=== PATIENT | female | born 2000 | race Two or more races ===

== ENCOUNTER → 2021-12-12 11:33 | Outpatient (BNVA) | payer BC, SELFPAY | PROVIDERS: PCP Internal Medicine; Visit Provider Advanced Practice Midwife ==

== ENCOUNTER 2022-01-17 10:49 | Outpatient (REF) | payer BC, SELFPAY ==
[2022-01-17 14:06] LABS: MANUAL DIFF FLAG NO
[2022-01-17 14:10] LABS: Basophils Absolute Auto 0.1 X10*3/uL (0.0-0.2); Basophils Percent Auto 0.9 % (0-2); Eosinophils Absolute Auto 0.2 X10*3/uL (0.0-0.4); Eosinophils Percent Auto 4.3 % (0-4); Hematocrit 38.3 % (37.0-47.0); Hemoglobin 12.9 g/dl (12.0-16.0); Imm Gran Abs Auto 0.01 X10*3/uL (0.00-0.03); Imm Gran Pct Auto 0.2 % (0.0-0.4); Lymphocytes Absolute Auto 2.4 X10*3/uL (1.2-4.9); Lymphocytes Percent Auto 45.2 % (20-40); Mean Corpuscular HGB Conc 33.7 g/dl (31.0-35.0); Mean Corpuscular Hemoglobin 30.8 pg (27.0-33.0); Mean Corpuscular Volume 91.4 fL (80.0-98.0); Mean Platelet Volume 11.4 fL (9.4-12.3); Monocytes Absolute Auto 0.4 X10*3/uL (0.1-1.2); Monocytes Percent Auto 6.9 % (2-11); Neutrophils Absolute Auto 2.3 x10*3/uL (2.0-8.3); Neutrophils Percent Auto 42.5 % (45-73); Platelet Count 288 X10*3/uL (160-400); Red Blood Count 4.19 X10*6/uL (4.20-5.50); Red Cell Distribution Width 12.6 % (11.0-16.0); White Blood Count 5.4 X10*3/uL (4.8-10.8)
[2022-01-17 14:24] LABS: Alanine Aminotransferase 16 U/L (0-31); Albumin Level 4.2 g/dL (3.5-5.0); Alkaline Phosphatase 52 U/L (39-117); Anion Gap 11 (12-20); Aspartate Amino Transferase 19 U/L (5-31); Bilirubin Total 0.6 mg/dL (0.0-1.0); Blood Urea Nitrogen 12 mg/dL (9-16); Calcium 9.3 mg/dL (8.4-10.2); Carbon Dioxide 23 mmol/L (22-29); Chloride 106 mmol/L (96-108); Cholesterol 162 mg/dL; Estimated Glomerular Filt Rate > 60; Glucose Fasting 85 mg/dL (60-99); HDL Cholesterol 37 mg/dL; LDL Cholesterol Calculated 108 mg/dl; Potassium 4.1 mmol/L (3.3-5.1); Sodium 136 mmol/L (135-145); Triglycerides 89 mg/dL
[2022-01-17 14:51] LABS: TSH reflex Free T4 3.52 uIU/mL (0.32-4.0)
== END 2022-01-17 10:50 | disposition home or self-care (01) ==
LOC: HO.HMGCLDS 10:49
PROVIDERS: Visit Provider Internal Medicine
DX: Z00.01 Encounter for general adult medical examination with abnormal findings (principal); F32.2 Major depressive disorder, single episode, severe without psychotic features; F43.10 Post-traumatic stress disorder, unspecified
CPT/HCPCS: 36415; 80053; 80061; 84443; 85025

== ENCOUNTER → 2022-04-06 13:05 | Outpatient (BNVA) | payer BC, SELFPAY | PROVIDERS: PCP Internal Medicine; Visit Provider Advanced Practice Midwife | DX: Z32.02 Encounter for pregnancy test, result negative (principal); Z30.41 Encounter for surveillance of contraceptive pills | CPT/HCPCS: 81025 ==

== ENCOUNTER 2023-08-01 13:56 | Outpatient (AMB) | payer BC, SELFPAY ==
[2023-08-01 14:04] VITALS: BP 118/70; PULSE 98; O2SAT 99; BMI 25.2
--- NOTE | 2023-08-01 14:04 | A.OFFPC_ITS ---
Vital Signs 3 08/01/23 14:04 Height 5 ft 6 in Weight 156 lb 4 oz BMI 25.2 BP 118/70 Blood Pressure Location Rt brachial Position Sitting Pulse 98 Pulse Source Pulse Oximeter Pulse Oximetry (%) 99 Oxygen Delivery Method Room Air Intake Visit Reasons: Discuss personal issues Allergies No Known Allergies Allergy (Verified 08/01/23 14:06) Medication List - Last Reconciled 08/01/23 by Fabiano Bustamante MD No Known Home Meds Tobacco use date assessed: 08/01/23 Dental Screening Dental Screen Date: 08/01/23 Did you have a dental visit in the last 12 months?: No Did you have a dental problem in the last 6 months where you did not have access to dental care?: No Was dental information given to patient?: Patient has dentist HPI Discuss personal issues 2 HPI0 Details Patient says that she felt of painful lump right groin area close to labia that she would like to be evaluated She also is complaining of feeling 2 in of pain off and on left breast Patient is not sure if it is more so close to her menstrual cycle or not. On examination patient has very fibronodular breast but symmetrical. No lumps were felt no nipple discharge noticed Patient was reassured The painful lump she is concerned about is small boil I have sent doxycycline she may take that. [facility] Medical History Migraine with aura Family History Maternal Grandfather Diabetes Social History Housing: House Alcohol intake: current Alcohol intake frequency: holidays/special occasions only Patient Tobacco Use Status: Never used Tobacco e-Cigarette/Vaping Use: Currently Using service: No Current occupational status: employed Sexual orientation: Straight/Heterosexual Gender identity: Female Cognitive needs: No Hearing needs: No Vision needs: Yes Female Reproductive History Menstrual Age of Menarche: 11 Questionnaire PHQ-9 Over the last 2 weeks, how often have you been bothered by any of the following problems? 1. Little interest or pleasure in doing things: more than half the days 2. Feeling down, depressed, or hopeless: more than half the days 3. Trouble falling or staying asleep, or sleeping too much: nearly every day 4. Feeling tired or having little energy: several days 5. Poor appetite or overeating: more than half the days 6. Feeling bad about yourself - or that you are a failure or have let yourself or your family down: more than half the days 7. Trouble concentrating on things, such as reading the newspaper or watching television: several days 8. Moving or speaking so slowly that other people could have noticed. Or the opposite - being so fidgety or restless that you have been moving around a lot more than usual: several days 9. Thoughts that you would be better off or of hurting yourself in some way: several days Total score: 15 Depression Screening Interpretation: Positive Depression Screening Follow-up: Community Mental Health Worker F/U and Follow-up Visit Requested Depression Screening Done: Yes 77779 - PHQ-9 Billing: Yes Source: Developed by Drs. Donald De Leon, Elena Longoria, Rod Lamar and colleagues, with an educational danny from [employer]. Thrive Questionnaire Date Thrive assessed: 11/22/21 I am a: Patient What is your living situation today?: I have a steady place to live Within the past 12 months, did the food you bought not last and you didn't have the money to get more?: Sometimes True Within the past 12 months, did you worry whether your food would run out before you got money to buy more?: Sometimes True Do you have trouble paying for medicines?: No Do you have trouble getting transportation to medical appointments?: No Do you have trouble paying your heating and electricity bill?: No Do you have trouble taking care of your child, family member or friend?: No Do you have trouble with day-to-day activities such as bathing, preparing meals, shopping, managing finances, etc.?: No Are you currently unemployed and looking for a job?: No Are you interested in more education?: Yes AUDIT C Alcohol Use Questionnaire (AUDIT-C) 1. How often do you have a drink containing alcohol?: Never 3. How often do you have six or more drinks on one occasion?: Never Total Score: 0 Score Reviewed/Action Taken: Yes RAMESH-7 AMB Questionnaire RAMESH-7 Date RAMESH - 7 assessed: 08/01/23 Feeling nervous, anxious, or on edge: 2 = More than half the days Not being able to stop or control worryin = Nearly every day Worrying too much about different things: 3 = Nearly every day Trouble relaxin = More than half the days Being so restless that it is hard to sit still: 1 = Several days Becoming easily annoyed or irritable: 2 = More than half the days Feeling afraid as if something awful might happen: 3 = Nearly every day Total RAMESH-7 score (0-4 normal; 5-9 mild; 10-14 moderate; 15-21 severe): 16 Source: Developed by Drs. Donald De Leon, Elena Longoria, Rod Lamar and colleagues, with an educational danny from [employer]. RAMESH-7 Assessment Billing RAMESH-7 Assessment Tool: RAMESH-7 Assessment 99663 Review of Systems Const Denies chills and Denies fever(s) ENT Denies epistaxis and Denies nasal discharge Card Denies chest pain Resp Denies chest congestion, Denies cough and Denies hemoptysis GI Denies diarrhea and Denies nausea Skin/Breast Denies rash Neuro Reports no additional complaints Psych Reports no additional complaints Endo Reports no additional complaints Physical exam (Primary Care) Vital Signs: Last Vital Signs Pulse 98 08/01/23 14:04 BP 118/70 08/01/23 14:04 Pulse Ox 99 08/01/23 14:04 Oxygen Delivery Method Room Air 08/01/23 14:04 BMI result Body Mass Index 25.2 Tobacco/Smoking Status: Tobacco use Status Tobacco use date assessed 08/01/23 08/01/23 14:06 Patient Tobacco Use Status Never used Tobacco 08/01/23 14:06 e-Cigarette/Vaping Use Currently Using 08/01/23 14:06 PHQ-9: PHQ-9 Score PHQ-9: Total score 15 08/01/23 14:21 Depression Screening Interpretation: Positive Depression Screening Follow-up: Community Mental Health Worker F/U and Follow-up Visit Requested Thrive Assessment: Date of Thrive Assessment Date Thrive assessed 11/22/21 08/01/23 14:06 Const General: cooperative, comfortable and no acute distress Orientation/consciousness: patient oriented x3 HENMT Head: Yes normocephalic Eyes General: appearance normal, both eyes and all related structures Neck Neck: Yes supple Chest Other: Both breasts are very fibronodular but symmetrical Resp Effort & Inspection: normal respiratory effort, no cough and no stridor Female genitals images: 2 1. Small inflamed boil without fluctuation or pus Skin General skin exam: turgor normal Neuro General: patient oriented x3, tone normal and moves all extremities Extrem Right lower extremity: no edema Left lower extremity: no edema Assessment and Plan Assessment & Plan (1) Boil, groin: Code(s): L02.224 - Furuncle of groin (2) Soreness breast: Code(s): N64.4 - Mastodynia (3) Major depressive disorder, severe: Comment: We will book a follow-up appointment after community health worker reach out to patient Code(s): F32.2 - Major depressive disorder, single episode, severe without psychotic features Plan Patient says that she felt of painful lump right groin area close to labia that she would like to be evaluated She also is complaining of feeling 2 in of pain off and on left breast Patient is not sure if it is more so close to her menstrual cycle or not. On examination patient has very fibronodular breast but symmetrical. No lumps were felt no nipple discharge noticed Patient was reassured The painful lump she is concerned about is small boil I have sent doxycycline she may take that. Medications: New 2 doxycycline hyclate 100 mg PO BID 10 caps 0RF Boil 5 days Coding Level of Care Code Est Pt Level 4 (26538) Diagnoses Boil, groin L02.224 Soreness breast N64.4 Major depressive disorder, severe F32.2 Additional Codes RAMESH-7 Assessment Billing - RAMESH-7 Assessment Tool: RAMESH-7 Assessment [id number] ([id number])
== END 2023-08-01 15:40 | disposition home or self-care (01) ==
PROVIDERS: PCP Internal Medicine; Visit Provider Internal Medicine
DX: L02.224 Furuncle of groin (principal); N64.4 Mastodynia; F32.2 Major depressive disorder, single episode, severe without psychotic features
CPT/HCPCS: 96127; 99214

== ENCOUNTER 2023-10-30 09:06 | Outpatient (AMB) | payer BC, SELFPAY ==
[2023-10-30 09:11] VITALS: BP 118/70; PULSE 108; O2SAT 98; BMI 26.1
--- NOTE | 2023-10-30 09:11 | MHC.PC.OV ---
Vital Signs 10/30/23 09:11 Height 5 ft 6 in Weight 162 lb BMI 26.1 BP 118/70 Blood Pressure Location Lt brachial Position Sitting Pulse 108 H Pulse Source Pulse Oximeter Pulse Oximetry (%) 98 Oxygen Delivery Method Room Air Intake Visit Reasons: Physical exam Is last menstrual period known: Yes Last menstrual period: 10/08/23 Allergies No Known Allergies Allergy (Verified 10/30/23 09:13) Medication List - Last Reconciled 10/30/23 by Fabiano Bustamante MD No Known Home Meds Tobacco use date assessed: 10/30/23 Dental Screening Dental Screen Date: 10/30/23 Did you have a dental visit in the last 12 months?: Yes Did you have a dental problem in the last 6 months where you did not have access to dental care?: No Was dental information given to patient?: Patient has dentist HPI Physical exam HPI Details Patient is 22-year-old female came in today for physical examination Patient continued to suffer from depression and anxiety She will be meeting with our behavior health coordinator She is willing to try medication this visit, I have sent Lexapro 10 mg tablet Patient was notified to take half a tablet for a week and then full tablet Lab order placed to be done fasting Patient is still waiting to see OBGYN We will book a telemedicine visit in 3 weeks to see how she is doing with the new medication Physical exam 1 year [facility] Medical History Migraine with aura Family History Maternal Grandfather Diabetes Social History Housing: House Alcohol intake: current Alcohol intake frequency: holidays/special occasions only Patient Tobacco Use Status: Never used Tobacco e-Cigarette/Vaping Use: Currently Using service: No Current occupational status: employed Sexual orientation: Straight/Heterosexual Gender identity: Female Cognitive needs: No Hearing needs: No Vision needs: Yes Female Reproductive History Menstrual Age of Menarche: 11 Date of last menstrual period: 10/08/23 Questionnaire PHQ-9 Over the last 2 weeks, how often have you been bothered by any of the following problems? 1. Little interest or pleasure in doing things: more than half the days 2. Feeling down, depressed, or hopeless: more than half the days 3. Trouble falling or staying asleep, or sleeping too much: nearly every day 4. Feeling tired or having little energy: several days 5. Poor appetite or overeating: more than half the days 6. Feeling bad about yourself - or that you are a failure or have let yourself or your family down: more than half the days 7. Trouble concentrating on things, such as reading the newspaper or watching television: several days 8. Moving or speaking so slowly that other people could have noticed. Or the opposite - being so fidgety or restless that you have been moving around a lot more than usual: several days 9. Thoughts that you would be better off or of hurting yourself in some way: several days Total score: 15 Depression Screening Interpretation: Positive Depression Screening Follow-up: Community Mental Health Worker F/U and Follow-up Visit Requested Depression Screening Done: Yes 74875 - PHQ-9 Billing: Yes Source: Developed by Drs. Donald De Leon, Rod Hyde and colleagues, with an educational danny from [employer]. Thrive Questionnaire Date Thrive assessed: 11/22/21 AUDIT C Alcohol Use Questionnaire (AUDIT-C) 1. How often do you have a drink containing alcohol?: Never 3. How often do you have six or more drinks on one occasion?: Never Total Score: 0 Score Reviewed/Action Taken: Yes RAMESH-7 AMB Questionnaire RAMESH-7 Date RAMESH - 7 assessed: 08/01/23 Source: Developed by Drs. Donald De Leon, Rod Hyde and colleagues, with an educational danny from [employer]. Review of Systems Const Denies chills, Denies fever(s) and Denies headache(s) Eyes Denies blurry vision ENT Denies headache(s), Denies nasal discharge, Denies nasal obstruction, Denies odynophagia and Denies sinus pain Card Denies chest pain at rest and Denies chest pain with activity Resp Denies cough and Denies hemoptysis GI Denies diarrhea, Denies odynophagia, Denies vomiting and Denies hematemesis Reports as per HPI Musc Denies abnormal gait Skin/Breast Reports as per HPI Neuro Denies Neuro-related abnormal movements, Denies Abnormal speech present, Denies abnormal gait, Denies headache(s) and Denies Sensory deficit (Neuro) Psych Denies paranoia Endo Reports as per HPI Matthew/Lymph Reports as per HPI Aller/Immun Reports as per HPI Physical exam (Primary Care) Vital Signs: Last Vital Signs Pulse 108 H 10/30/23 09:11 BP 118/70 10/30/23 09:11 Pulse Ox 98 10/30/23 09:11 Oxygen Delivery Method Room Air 10/30/23 09:11 BMI result Body Mass Index 26.1 Tobacco/Smoking Status: Tobacco use Status Tobacco use date assessed 10/30/23 10/30/23 09:14 Patient Tobacco Use Status Never used Tobacco 10/30/23 09:14 e-Cigarette/Vaping Use Currently Using 10/30/23 09:14 Depression Screening Interpretation: Positive Depression Screening Follow-up: Community Mental Health Worker F/U and Follow-up Visit Requested Thrive Assessment: Date of Thrive Assessment Date Thrive assessed 11/22/21 10/30/23 09:14 Const General: cooperative, comfortable and no acute distress Orientation/consciousness: patient oriented x3 HENMT Head: Yes normocephalic and Yes atraumatic Eyes General: appearance normal, both eyes and all related structures Pupils: Equal, round and reactive pupils present EOM: EOMs intact bilaterally Neck Neck: Yes supple and No lymphadenopathy Thyroid: Thyroid normal Lymphatic: no lymphadenopathy noted Resp Effort & Inspection: normal respiratory effort and able to speak in complete sentences Auscultation: clear to auscultation bilaterally Cardio Heart sounds: S1 normal heart sound present and S2 normal heart sound present GI Palpation (GI): Soft to palpation and nontender Auscultation: normal bowel sounds General: Yes no CVA tenderness Back/Spine/Pelvis Back: no CVA tenderness Skin General skin exam: elasticity normal and turgor normal Neuro General: patient oriented x3 and gait normal Cranial nerves: Yes Equal, round and reactive pupils present Speech: No Abnormal speech present Sensory Exam: No Sensory deficit (Neuro) Coordination: tandem gait normal and Romberg test negative Extrem General: Yes normal exam except as noted and No edema Assessment and Plan Assessment & Plan (1) Encounter for general adult medical examination with abnormal findings: Code(s): Z00.01 - Encounter for general adult medical examination with abnormal findings (2) PTSD (post-traumatic stress disorder): Code(s): F43.10 - Post-traumatic stress disorder, unspecified (3) Major depression, recurrent: Code(s): F33.9 - Major depressive disorder, recurrent, unspecified Qualifiers: Active/Remission status: in partial remission Qualified Code(s): F33.41 - Major depressive disorder, recurrent, in partial remission Plan Patient is 22-year-old female came in today for physical examination Patient continued to suffer from depression and anxiety She will be meeting with our behavior health coordinator She is willing to try medication this visit, I have sent Lexapro 10 mg tablet Patient was notified to take half a tablet for a week and then full tablet Lab order placed to be done fasting Patient is still waiting to see OBGYN We will book a telemedicine visit in 3 weeks to see how she is doing with the new medication Physical exam 1 year Orders: Orders Complete Blood Count Auto Diff Today F33.9 - Major depressive disorder, recurrent, unspecified, F43.10 - Post-traumatic stress disorder, unspecified, Z00.01 - Encounter for general adult medical examination with abnormal findings Comprehensive [place]. Panel Fast Today F33.9 - Major depressive disorder, recurrent, unspecified, F43.10 - Post-traumatic stress disorder, unspecified, Z00.01 - Encounter for general adult medical examination with abnormal findings Lipid Panel Today F33.9 - Major depressive disorder, recurrent, unspecified, F43.10 - Post-traumatic stress disorder, unspecified, Z00.01 - Encounter for general adult medical examination with abnormal findings TSH reflex Free T4 Today F33.9 - Major depressive disorder, recurrent, unspecified, F43.10 - Post-traumatic stress disorder, unspecified, Z00.01 - Encounter for general adult medical examination with abnormal findings Medications: New escitalopram oxalate (Lexapro) 10 mg PO DAILY 30 tabs 0RF Coding Level of Care Code Est Pt Prev Care 18-39y(00197) Diagnoses Encounter for general adult medical examination with abnormal findings Z00.01 PTSD (post-traumatic stress disorder) F43.10 Recurrent major depressive disorder, in partial remission F33.41 Active/Remission status: in partial remission
== END 2023-10-30 10:01 | disposition home or self-care (01) ==
PROVIDERS: PCP Internal Medicine; Visit Provider Internal Medicine
DX: Z00.00 Encounter for general adult medical examination without abnormal findings (principal); F43.10 Post-traumatic stress disorder, unspecified; F33.41 Major depressive disorder, recurrent, in partial remission
CPT/HCPCS: 99395

== ENCOUNTER → 2023-11-01 13:54 | Outpatient (BNVA) | payer BC, SELFPAY | PROVIDERS: PCP Internal Medicine; Visit Provider Advanced Practice Midwife ==

== ENCOUNTER 2024-01-23 07:58 | Outpatient (REF) | payer BC, SELFPAY ==
[2024-01-23 18:03] LABS: CT PCR NOT DETECTED (Not Detect.); NG PCR NOT DETECTED (Not Detect.)
== END 2024-01-23 07:59 | disposition home or self-care (01) ==
LOC: HO.LNP 07:58
PROVIDERS: PCP Internal Medicine; Visit Provider Advanced Practice Midwife
DX: Z01.419 Encounter for gynecological examination (general) (routine) without abnormal findings (principal); Z20.2 Contact with and (suspected) exposure to infections with a predominantly sexual mode of transmission
CPT/HCPCS: 0353U; 88142

== ENCOUNTER 2024-01-23 07:58 | Outpatient (AMB) | payer BC, SELFPAY ==
[2024-01-23 08:03] VITALS: BP 100/60; BMI 24.5
--- NOTE | 2024-01-23 08:03 | MHC.OFFVIS ---
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 Doing well with no concerns. First pelvic exam. Would like to restart her [place]. She tries to eat healthy and stays active with exercise. Regular monthly menses. Uses condoms for contraception.Currently is sexually active. She denies vaginal itching and irritation. STI screening offered; she accepts, declines blood work. Denies family history of breast, ovarian or colon cancer. She denies any contraindications to control such as: history of DVT or pulmonary emboli, high blood pressure, liver disease, thrombolic disorders, Lupus, +JOESPH, breast cancer, or smoking. [facility] Medical History Migraine with aura Family History Maternal Grandfather Diabetes Social History (Updated 01/23/24 @ 08:06 by NGUYEN Fortune) Housing: House Alcohol intake: current Alcohol intake frequency: holidays/special occasions only Patient Tobacco Use Status: Never used Tobacco e-Cigarette/Vaping Use: Currently Using service: No Current occupational status: employed Sexual orientation: Straight/Heterosexual Gender identity: Female Cognitive needs: No Hearing needs: No Vision needs: Yes Female Reproductive History Menstrual Age of Menarche: 11 Duration of menses: 3-5 days Date of last menstrual period: 01/13/24 control method: condoms Total pregnancies: 0 Review of Systems Const All systems reviewed & are unremarkable except as noted in HPI and below Reports as per HPI Eyes Reports no additional complaints ENT Reports no additional complaints Card Reports no additional complaints Resp Reports no additional complaints GI Reports as per HPI and Reports no additional complaints Reports as per HPI Musc Reports no additional complaints Skin/Breast Reports as per HPI Neuro Reports no additional complaints Psych Reports no additional complaints Endo Reports no additional complaints Matthew/Lymph Reports no additional complaints Aller/Immun Reports no additional complaints Physical Exam Vital Signs: Last Vital Signs BP 100/60 01/23/24 08:03 BMI result Body Mass Index 24.5 Const General: cooperative, healthy appearing, no acute distress, well developed and alert Orientation/consciousness: patient oriented x3 HEENT Head: Yes normal to inspection Eyes General: appearance normal, both eyes and all related structures Neck Neck: Yes normal visual inspection Thyroid: Thyroid normal Chest Chest palpation & inspection: normal inspection of the chest and other (no puckering, dimpling, peau de orange, retraction, discharge, masses) Breast/axilla inspection: normal inspection of the breasts Breast/axilla palpation: normal palpation of the breasts Resp Effort & Inspection: normal respiratory effort GI Inspection: Yes normal to inspection Palpation (GI): Soft to palpation Rectal Exam - Female: deferred General: Yes bladder normal to palpation External Female Exam: normal external appearance and normal appearance of the urethra Speculum Exam - Vagina: normal appearance of the vagina, normal palpation and normal vaginal discharge Speculum Exam - Cervix: normal appearance of the cervix and normal palpation Bimanual exam- vagina & uterus: normal bimanual exam, normal palpation, uterine size normal, bladder normal to palpation, normal palpation and non-tender Bimanual Exam- Adnexa, other: no masses Skin General skin exam: no rashes or lesions noted Rashes: no rashes Neuro General: patient oriented x3 Cognition (Neuro): normal cognition Extrem General: Yes normal to inspection Psych Attitude: cooperative Thought process: Normal thought process present Assessment & Plan Assessment & Plan (1) Encounter for well woman exam with routine gynecological exam: Code(s): Z01.419 - Encounter for gynecological examination (general) (routine) without abnormal findings Plan Discussed: Current recommendations for pap smears per ASCCP guidelines. Breast awareness and periodic breast exams. Maintain a healthy lifestyle including a well balanced diet and routine exercise. Use condoms for STI and prevention. control hormone use warnings: go to ER if and loss of vision, blindness, severe headache, chest pain or difficulty breathing, severe abdominal pain, or any pain or swelling in an extremity. Patient verbalizes understanding and agrees to the plan of care. She was given opportunity to ask questions and all questions were answered to the best of my ability. RTO in one year for annual vet tech examination. This note is constructed using voice recognition software. While every effort has been made to ensure accuracy, licensed real estate broker errors may have been included. Orders: Orders Pap Smear Today Z01.419 - Encounter for gynecological examination (general) (routine) without abnormal findings CT NG by PCR Today Z20.2 - Contact with and (suspected) exposure to infections with a predominantly sexual mode of transmission Medications: New norethindrone (contraceptive) (Eliane) 0.35 mg PO DAILY 90 tabs 4RF 90 days Coding Level of Care Code Est Pt Prev Care 18-39y(73633) Diagnoses Encounter for well woman exam with routine gynecological exam Z01.419
== END 2024-01-23 08:29 | disposition home or self-care (01) ==
PROVIDERS: PCP Internal Medicine; Visit Provider Advanced Practice Midwife
DX: Z01.419 Encounter for gynecological examination (general) (routine) without abnormal findings (principal)
CPT/HCPCS: 99395

== ENCOUNTER 2024-11-07 10:54 | Outpatient (AMB) | payer BC, SELFPAY ==
[2024-11-07 10:59] VITALS: BP 112/62; PULSE 81; O2SAT 94; BMI 24.6
--- NOTE | 2024-11-07 10:59 | MHC.PC.OV ---
Vital Signs 11/07/24 10:59 Height 5 ft 6 in Weight 152 lb 4 oz BMI 24.6 BP 112/62 Blood Pressure Location Lt brachial Position Sitting Pulse 81 Pulse Source Pulse Oximeter Pulse Oximetry (%) 94 Oxygen Delivery Method Room Air Intake Visit Reasons: Annual PE Allergies No Known Allergies Allergy (Verified 11/07/24 11:01) Medication List - Last Reconciled 11/07/24 by Fabiano Bustamante MD norethindrone (contraceptive) (Eliane) 0.35 mg PO DAILY 90 days Tobacco use date assessed: 11/07/24 Dental Screening Dental Screen Date: 11/07/24 Did you have a dental visit in the last 12 months?: Yes Did you have a dental problem in the last 6 months where you did not have access to dental care?: No Was dental information given to patient?: Patient has dentist HPI Annual PE HPI Details - The patient is a 23-year-old female presenting with a wellness visit. - Symptoms of allergic rhinitis include sneezing and a stuffy nose, occurring intermittently, primarily in the morning. - Current management includes sporadic use of [id number]-fhpdrkv medication Zyzol; advised for daily usage. Health Maintenance - Discussion on the importance of daily use of allergy medication for prevention. - Confirmation of being up-to-date on immunizations, essential for upcoming phlebotomy education. - Discussion about the need to check vaccination titers if there's any uncertainty about immunization status. - patient is established with OBGYN Pap smear and breast exam through them - patient does not want updated labs at this time Medications - Zyzol (Levocetirizine) on an as-needed basis for allergic rhinitis. 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 - No current job-related stress or issues were discussed. Diagnostic results - Prior labs were indicated as satisfactory. Patient Instructions - Begin taking Zyzol (Levocetirizine) daily as a preventative measure for allergy symptoms. - Continue avoidance of smoking and substance use. - Remain informed about immunization needs for phlebotomy education, checking titers if necessary. Review of Systems - Respiratory: Reports intermittent stuffy nose and sneezing. Denies any new respiratory concerns. - Dermatological: Denies any new moles, rash, or other skin issues. - Smoking: Recently quit smoking, specifically minimal use of marijuana. - General: No fever no chills - Neurological: No headaches no dizziness - Ear nose throat: No sore throat no hearing difficulty no ear pain - Cardiovascular: No syncope, no chest pain, no palpitations - Gastrointestinal: No nausea vomiting or diarrhea - Endocrine: No polyuria polydipsia no heat intolerance - Genitourinary: No dysuria Physical Exam General: Cooperative, healthy appearing, comfortable, no acute distress Orientation: Patient oriented x3 Limitations: None Head: Normal to inspection Ears: Within normal limit visually Nose: Normal external nose present Face and sinus: Normal facial exam Eyes: Appearance normal, extraocular movement intact pupils reactive Neck: Normal visual inspection and supple, no glands Respiratory: Normal respiratory effort and able to speak in complete sentences. Clear to auscultation, no stridor Cardiovascular: S1 and S2 GI: Normal to inspection. Soft to palpation and nontender, no problem in the belly Skin: Turgor normal, no acute findings, no moles, rash, or skin problems Neuro: Patient oriented x3, motor sensory intact, balance intact, tandem pass Extremities: Normal to inspection, able to bend knee and walk on a straight line ON LICENSE OF [facility] Medical History Migraine with aura Family History Maternal Grandfather Diabetes Social History Housing: House Alcohol intake: current Alcohol intake frequency: holidays/special occasions only Patient Tobacco Use Status: Never used Tobacco e-Cigarette/Vaping Use: Currently Using service: No Current occupational status: employed Sexual orientation: Straight/Heterosexual Gender identity: Female Cognitive needs: No Hearing needs: No Vision needs: Yes Female Reproductive History Menstrual Age of Menarche: 11 Questionnaire PHQ-9 Over the last 2 weeks, how often have you been bothered by any of the following problems? 1. Little interest or pleasure in doing things: not at all 2. Feeling down, depressed, or hopeless: not at all 3. Trouble falling or staying asleep, or sleeping too much: not at all 4. Feeling tired or having little energy: not at all 5. Poor appetite or overeating: not at all 6. Feeling bad about yourself - or that you are a failure or have let yourself or your family down: not at all 7. Trouble concentrating on things, such as reading the newspaper or watching television: not at all 8. Moving or speaking so slowly that other people could have noticed. Or the opposite - being so fidgety or restless that you have been moving around a lot more than usual: not at all 9. Thoughts that you would be better off or of hurting yourself in some way: not at all Total score: 0 Depression Screening Interpretation: Negative Depression Screening Done: Yes 28552 - PHQ-9 Billing: Yes Source: Developed by Drs. Donald De Leon, Elena Longoria, Rod Lamar and colleagues, with an educational danny from [employer]. Thrive Questionnaire Date Thrive assessed: 11/07/24 I am a: Patient What is your living situation today?: I have a steady place to live Within the past 12 months, did the food you bought not last and you didn't have the money to get more?: I choose not to answer this question Within the past 12 months, did you worry whether your food would run out before you got money to buy more?: I choose not to answer this question Do you have trouble paying for medicines?: I choose not to answer this question Do you have trouble getting transportation to medical appointments?: I choose not to answer this question Do you have trouble paying your heating and electricity bill?: I choose not to answer this question Do you have trouble taking care of your child, family member or friend?: I choose not to answer this question Do you have trouble with day-to-day activities such as bathing, preparing meals, shopping, managing finances, etc.?: I choose not to answer this question Are you currently unemployed and looking for a job?: I choose not to answer this question Are you interested in more education?: I choose not to answer this question Please select the resources that you would like help with: None Currently or been in a relationship where the following occur: No concerns reported THRIVE Score: 0 AUDIT C Alcohol Use Questionnaire (AUDIT-C) 1. How often do you have a drink containing alcohol?: Never 3. How often do you have six or more drinks on one occasion?: Never Total Score: 0 Score Reviewed/Action Taken: Yes RAMESH-7 AMB Questionnaire RAMESH-7 Date RAMESH - 7 assessed: 11/07/24 Feeling nervous, anxious, or on edge: 0 = Not at all Not being able to stop or control worryin = Not at all Worrying too much about different things: 0 = Not at all Trouble relaxin = Not at all Being so restless that it is hard to sit still: 0 = Not at all Becoming easily annoyed or irritable: 0 = Not at all Feeling afraid as if something awful might happen: 0 = Not at all Total RAMESH-7 score (0-4 normal; 5-9 mild; 10-14 moderate; 15-21 severe): 0 Source: Developed by Drs. Donald De Leon, Elena Longoria, Rod Lamar and colleagues, with an educational danny from [employer]. RAMESH-7 Assessment Billing RAMESH-7 Assessment Tool: RAMESH-7 Assessment 58955 Physical exam (Primary Care) Vital Signs: Last Vital Signs Pulse 81 11/07/24 10:59 BP 112/62 11/07/24 10:59 Pulse Ox 94 11/07/24 10:59 Oxygen Delivery Method Room Air 11/07/24 10:59 BMI result Body Mass Index 24.6 Tobacco/Smoking Status: Tobacco use Status Tobacco use date assessed 11/07/24 11/07/24 11:02 Patient Tobacco Use Status Never used Tobacco 11/07/24 11:02 e-Cigarette/Vaping Use Currently Using 11/07/24 11:02 PHQ-9: PHQ-9 Score PHQ-9: Total score 0 11/07/24 11:02 Depression Screening Interpretation: Negative Thrive Assessment: Date of Thrive Assessment Date Thrive assessed 11/07/24 11/07/24 11:02 Currently or been in a relationship where the following occur: No concerns reported Coding Level of Care Code Est Pt Prev Care 18-39y(62767) Diagnoses Encounter for general adult medical examination without abnormal findings Z00.00 Additional Codes RAMESH-7 Assessment Billing - RAMESH-7 Assessment Tool: RAMESH-7 Assessment 34885 ([id number]) PHQ-9 - 62979 - PHQ-9 Billing: Yes ([id number]) Assessment & Plan Assessment & Plan (1) Encounter for general adult medical examination without abnormal findings: Code(s): Z00.00 - Encounter for general adult medical examination without abnormal findings Category: Medical Plan - The patient is a 23-year-old female presenting with a wellness visit. - Symptoms of allergic rhinitis include sneezing and a stuffy nose, occurring intermittently, primarily in the morning. - Current management includes sporadic use of dksz-hky-dfjbccl medication Zyzol; advised for daily usage. Health Maintenance - Discussion on the importance of daily use of allergy medication for prevention. - Confirmation of being up-to-date on immunizations, essential for upcoming phlebotomy education. - Discussion about the need to check vaccination titers if there's any uncertainty about immunization status. - patient is established with OBGYN Pap smear and breast exam through them - patient does not want updated labs at this time Medications - Zyzol (Levocetirizine) on an as-needed basis for allergic rhinitis. 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 - No current job-related stress or issues were discussed. Diagnostic results - Prior labs were indicated as satisfactory. Patient Instructions - Begin taking Zyzol (Levocetirizine) daily as a preventative measure for allergy symptoms. - Continue avoidance of smoking and substance use. - Remain informed about immunization needs for phlebotomy education, checking titers if necessary.
--- OUTSIDE RECORDS SUMMARY | 2024-11-07 11:44 | XMS_ITS | Clinical Summary ---
Author Organization [facility] Address [address] [place] [address] Care Team Providers Care First Officer And Flight Instructor Name Role Phone Unavailable Primary Care Provider Unavailabl e Allergies No known active allergies Social History Tobacco Use Types Packs/Day Years Used Date Smoking Tobacco: Never Assessed Sex and Gender Information Value Date Recorded Sex Assigned at Not on file Gender Identity Not on file Sexual Orientation Not on file Last Filed Vital Signs Vital Sign Reading Time Taken Comments Blood Pressure 126/62 11/14/2021 12:43 AM EST Pulse 94 11/14/2021 12:43 AM EST Temperature 37.5 ??C (99.5 ??F) 2021 7:28 PM ES T Respiratory Rate 18 11/14/2021 12:43 AM EST Oxygen Saturation 97% 11/14/2021 12:43 AM EST Inhaled Oxygen Concentration - - Weight - - Height - - Body Mass Index - - Plan of Treatment Health Maintenance Due Date Last Done Comments Hepatitis C Virus Screening 1999 HIV Screening 2012 HPV Vaccines (1 - 3-dose series) 2014 DTaP/Tdap/Td Vaccines (1 - Tdap) 2018 Hepatitis B Vaccines (1 of 3 - 19+ 3-dose series) 2018 Pap Smear (Ages 21-65) 2020 Influenza Vaccine 05/08/2024 COVID-19 Vaccine (1 - 2023-2 5 season) 2024 Pneumococcal Vaccine: Pediat kb (0-5 Years) and At-Risk Patients (6 to 49 Years) Aged Out No longer eligible b ased on patient's age to complete this topic
--- OUTSIDE RECORDS SUMMARY | 2024-11-07 11:44 | XMS_ITS | Clinical Summary ---
Author Organization [facility] ity Address [address] [place] [address] Care Team Providers Care Projection Camera Operator Name Role Phone Unavailable Primary Care Provider Unavailabl e Social History Tobacco Use Types Packs/Day Years Used Date Smoking Tobacco: Never Assessed Sex and Gender Information Value Date Recorded Sex Assigned at Not on file Gender Identity Not on file Sexual Orientation Not on file Plan of Treatment Health Maintenance Due Date Last Done Comments Gonorrhea/Chlamydia Screening 1999 HPV Vaccines (1 - 3-dose series) 2014 DTaP,Tdap,and Td Vaccines (1 - Tdap) 2018 Hepatitis B Vaccines (1 of 3 - 19+ 3-dose series) 2018 Cervical Cancer Screening: P ap Smear 2020 Depression Screening 09/10/2022 HIV Screening 09/10/2022 Hepatitis C Screening 09/10/2022 Social Influencers of Health Screening 09/10/2022 COVID-19 Vaccine (2023-2 5 season) 2024 Influenza Vaccine (#1) 2024 HIB Vaccines Aged Out No longer eligi ble based on patient's age to complete this topic Hepatitis A Vaccines Aged Out No long er eligible based on patient's age to complete this topic IPV Vaccines Aged Out No longer eligi ble based on patient's age to complete this topic MMR Vaccines Aged Out No longer eligi ble based on patient's age to complete this topic Meningococcal ACWY Vaccine Aged Out N o longer eligible based on patient's age to complete this topic Pneumococcal Vaccine: Pediat rics (0 to 5 Years) and At-Risk Patients (6 to 64 Years) Aged Out No longer eligible b ased on patient's age to complete this topic RSV Immunization Patients Un rudolph 20 months Aged Out No longer eligible b ased on patient's age to complete this topic Varicella Vaccines Aged Out No longer eligible based on patient's age to complete this topic
== END 2024-11-07 11:24 | disposition home or self-care (01) ==
PROVIDERS: PCP Internal Medicine; Visit Provider Internal Medicine
DX: Z00.00 Encounter for general adult medical examination without abnormal findings (principal)

== ENCOUNTER → 2024-11-07 10:54 | Outpatient (BNVA) | payer BC, SELFPAY | PROVIDERS: PCP Internal Medicine; Visit Provider Internal Medicine | DX: Z00.00 Encounter for general adult medical examination without abnormal findings (principal) | CPT/HCPCS: 96127 ==

== ENCOUNTER 2024-12-26 11:14 | Outpatient (REF) | payer BC, SELFPAY ==
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
--- OUTSIDE RECORDS SUMMARY | 2024-12-26 13:41 | XMS_ITS | Clinical Summary ---
Author Organization [facility] Address [address] [place] [address] Care Team Providers Care Chief General Pediatric [facility] Name Role Phone Unavailable Primary Care Provider [...]
--- OUTSIDE RECORDS SUMMARY | 2024-12-26 13:41 | XMS_ITS | Clinical Summary ---
Author Organization [facility] it Address [address] [place] [address] Care Team Providers Care Business Management Consultant Name Role Phone Unavailable Primary Care Provider Unavailabl e Social History Tobacco Use Types Packs/Day Years Used Date Smoking Tobacco: Never Assessed Comments Unknown Sex and Gender Information Value Date Recorded Sex Assigned at Not on file Legal Sex Female 4:38 AM EST Gender Identity Not on file Sexual Orientation Not on file Plan of Treatment Health Maintenance Due Date Last Done Comments HPV Vaccines (1 - 3-dose series) 2014 [...] patient's age to complete this topic Meningococcal B Vacine Aged Out No lo nger eligible based on patient's age to complete [...]
[2024-12-26 14:03] LABS: HBS Num1 34.72 mIU/mL (0-7.99); ~Hepatitis B Surface Antibody REACTIVE (Nonreactive)
[2024-12-29 22:58] LABS: Rubeola IgG (Measles) >300.00 AU/mL
[2024-12-29 23:02] LABS: Rubella IgG Antibody 9.11 Index
== END 2024-12-26 11:15 | disposition home or self-care (01) ==
LOC: HO.HMGCLDS 11:14
PROVIDERS: PCP Internal Medicine; Visit Provider Internal Medicine
DX: Z11.1 Encounter for screening for respiratory tuberculosis (principal); Z78.9 Other specified health status
CPT/HCPCS: 36415; 86481; 86706; 86735; 86762; 86765

== ENCOUNTER 2025-01-08 10:58 | Outpatient (REF) | payer BC, SELFPAY ==
--- OUTSIDE RECORDS SUMMARY | 2025-01-08 12:20 | XMS_ITS | Clinical Summary ---
Author Organization [facility] it Address [address] [place] [address] Care Team Providers Care Dry Cell Tester Name Role Phone Unavailable Primary Care Provider [...]
--- OUTSIDE RECORDS SUMMARY | 2025-01-08 12:20 | XMS_ITS | Clinical Summary ---
Author Organization [facility] Address [address] [place] [address] Care Team Providers Care Pre Kindergarten Teacher Name Role Phone Unavailable Primary Care Provider [...]
== END 2025-01-08 10:59 | disposition home or self-care (01) ==
LOC: HO.HMGCLDS 10:58
PROVIDERS: PCP Internal Medicine; Visit Provider Internal Medicine
DX: Z11.1 Encounter for screening for respiratory tuberculosis (principal)
CPT/HCPCS: 36415; 86481

== ENCOUNTER 2025-01-27 13:46 | Outpatient (AMB) | payer BC, SELFPAY ==
[2025-01-27 13:57] VITALS: BP 104/60; BMI 24.5
--- NOTE | 2025-01-27 13:57 | MHC.OFFVIS ---
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 Comments Details: She is a premenopausal woman presenting for annual examination. Doing well with no radio technician concerns. Current Sally user, history of migraines with aura. She denies any contraindications to control such as: history of DVT or pulmonary emboli, high blood pressure, liver disease, thrombolic disorders, Lupus, +JOESPH, breast cancer, or smoking. Currently is sexually active. She denies vaginal itching and irritation. STI screening offered; she accepts. She tries to eat healthy and stays active with exercise. Denies family history of breast, ovarian or colon cancer. Last pap smear 2023, negative. [facility] Medical History Migraine with aura Family History Maternal Grandfather Diabetes Social History Housing: House Alcohol intake: current Alcohol intake frequency: holidays/special occasions only Patient Tobacco Use Status: Never used Tobacco e-Cigarette/Vaping Use: Currently Using service: No Current occupational status: employed Sexual orientation: Straight/Heterosexual Gender identity: Female Cognitive needs: No Hearing needs: No Vision needs: Yes Female Reproductive History Menstrual Age of Menarche: 11 Date of last menstrual period: 01/22/25 control method: pills Total pregnancies: 0 Date of last pap smear: 01/23/24 (neg) Review of Systems Const All systems reviewed & are unremarkable except as noted in HPI and below Reports as per HPI Eyes Reports no additional complaints ENT Reports no additional complaints Card Reports no additional complaints Resp Reports no additional complaints GI Reports as per HPI and Reports no additional complaints Reports as per HPI Musc Reports no additional complaints Skin/Breast Reports as per HPI Neuro Reports no additional complaints Psych Reports no additional complaints Endo Reports no additional complaints Matthew/Lymph Reports no additional complaints Aller/Immun Reports no additional complaints Physical Exam Vital Signs: Last Vital Signs BP 104/60 01/27/25 13:57 BMI result Body Mass Index 24.5 Const General: cooperative, healthy appearing, no acute distress, well developed and alert Orientation/consciousness: patient oriented x3 HEENT Head: Yes normal to inspection Eyes General: appearance normal, both eyes and all related structures Neck Neck: Yes normal visual inspection Thyroid: Thyroid normal Chest Chest palpation & inspection: normal inspection of the chest and other (no puckering, dimpling, peau de orange, retraction, discharge, masses) Breast/axilla inspection: normal inspection of the breasts Breast/axilla palpation: normal palpation of the breasts Resp Effort & Inspection: normal respiratory effort GI Inspection: Yes normal to inspection Palpation (GI): Soft to palpation Rectal Exam - Female: deferred General: Yes bladder normal to palpation External Female Exam: normal external appearance and normal appearance of the urethra Speculum Exam - Vagina: normal appearance of the vagina, normal palpation and normal vaginal discharge Speculum Exam - Cervix: normal appearance of the cervix and normal palpation Bimanual exam- vagina & uterus: normal bimanual exam, normal palpation, uterine size normal, bladder normal to palpation, normal palpation and non-tender Bimanual Exam- Adnexa, other: no masses Skin General skin exam: no rashes or lesions noted Rashes: no rashes Neuro General: patient oriented x3 Cognition (Neuro): normal cognition Extrem General: Yes normal to inspection Psych Attitude: cooperative Thought process: Normal thought process present Assessment & Plan Assessment & Plan (1) Encounter for routine gynecological examination: Code(s): Z01.419 - Encounter for gynecological examination (general) (routine) without abnormal findings Category: Medical Qualifiers: Gynecological examination findings: abnormal findings ABSENT Qualified Code(s): Z01.419 - Encounter for gynecological examination (general) (routine) without abnormal findings Plan Discussed: Current recommendations for pap smears per ASCCP guidelines. Breast awareness and periodic breast exams. Maintain a healthy lifestyle including a well balanced diet and routine exercise. Use condoms for STI and prevention. control hormone use warnings: go to ER if and loss of vision, blindness, severe headache, chest pain or difficulty breathing, severe abdominal pain, or any pain or swelling in an extremity. Rx for Sally send in. Patient verbalizes understanding and agrees to the plan of care. She was given opportunity to ask questions and all questions were answered to the best of my ability. RTO in one year for annual radio technician examination. This note is constructed using voice recognition software. While every effort has been made to ensure accuracy, machine shop helper errors may have been included. Orders: Orders Bacterial Vaginosis Panel Today Z20.2 - Contact with and (suspected) exposure to infections with a predominantly sexual mode of transmission CT NG by PCR Today Z20.2 - Contact with and (suspected) exposure to infections with a predominantly sexual mode of transmission Medications: Refilled norethindrone (contraceptive) (Eliane) 0.35 mg PO DAILY 90 tabs 4RF 90 days Coding Level of Care Code Est Pt Prev Care 18-39y(72046) Diagnoses Encounter for gynecological examination without abnormal finding Z01.419 Gynecological examination findings: abnormal findings ABSENT
--- OUTSIDE RECORDS SUMMARY | 2025-01-27 16:24 | XMS_ITS | Clinical Summary ---
Author Organization [facility] it Address [address] [place] [address] Care Team Providers Care Historiography Teacher Name Role Phone Unavailable Primary Care [...] Vaccine (2023-2 5 season) 2024 Influenza Vaccine (Season Ended) 2025 HIB Vaccines Aged Out No longer eligi [...] age to complete this topic Meningococcal B Vaccine Aged Out No l onger eligible based on patient's age to complete [...]
--- OUTSIDE RECORDS SUMMARY | 2025-01-27 16:24 | XMS_ITS | Clinical Summary ---
Author Organization [facility] Address [address] [place] [address] Care Team Providers Care News Department Intern Name Role Phone Unavailable Primary Care Provider Unavailabl e Allergies No known active allergies Social History Tobacco Use Types Packs/Day Years Used Date Smoking Tobacco: Never Assessed Comments Unknown Sex and Gender Information Value Date Recorded Sex Assigned at Not on file Legal Sex Female 7:16 PM EST Gender Identity Not on file Sexual [...] 21-65) 2020 Influenza Vaccine 05/08/2024 COVID-19 Vaccine ( - 2023-2 5 season) 2024 Pneumococcal Vaccine: Pediat kb (0-5 Years) and At-Risk Patients (6 to 49 Years) Aged Out No longer eligible b ased on patient's age to complete this topic Insurance [facility] PREFERRED
== END 2025-01-27 14:39 | disposition home or self-care (01) ==
LOC: HO.HWS 13:46
PROVIDERS: PCP Internal Medicine; Visit Provider Advanced Practice Midwife
DX: Z01.419 Encounter for gynecological examination (general) (routine) without abnormal findings (principal)
CPT/HCPCS: 99395; 99459

== ENCOUNTER 2025-01-27 13:46 | Outpatient (REF) | payer BC, SELFPAY ==
--- OUTSIDE RECORDS SUMMARY | 2025-01-27 17:25 | XMS_ITS | Clinical Summary ---
Author Organization [facility] it Address [address] [place] [address] Care Team Providers Care Front End Web Developer Name Role Phone Unavailable Primary Care Provider [...]
--- OUTSIDE RECORDS SUMMARY | 2025-01-27 17:25 | XMS_ITS | Clinical Summary ---
Author Organization [facility] Address [address] [place] [address] Care Team Providers Care Industrial Truck Operator Name Role Phone Unavailable Primary Care [...] patient's age to complete this topic Insurance [facility] PREFERRED
== END 2025-01-27 13:47 | disposition home or self-care (01) ==
LOC: HO.LAB 13:46
PROVIDERS: PCP Internal Medicine; Visit Provider Advanced Practice Midwife
DX: Z13.89 Encounter for screening for other disorder (principal)

== ENCOUNTER 2025-01-27 14:34 | Outpatient (REF) | payer BC, SELFPAY ==
[2025-01-28 11:08] LABS: CT PCR NOT DETECTED (Not Detect.); NG PCR NOT DETECTED (Not Detect.)
[2025-01-28 11:50] LABS: Bacterial Vaginosis PCR NEGATIVE (Negative); Candida Group PCR NOT DETECTED (Not Detect); Candida glab krusei PCR NOT DETECTED (Not Detect); Trichomonas vaginalis PCR NOT DETECTED (Not Detect)
== END 2025-01-27 14:35 | disposition home or self-care (01) ==
LOC: HO.LNP 14:34
PROVIDERS: Visit Provider Advanced Practice Midwife
DX: Z20.2 Contact with and (suspected) exposure to infections with a predominantly sexual mode of transmission (principal)
CPT/HCPCS: 81515; 87491; 87591

== ENCOUNTER 2025-03-06 10:17 | Outpatient (REF) | payer BC, SELFPAY ==
--- OUTSIDE RECORDS SUMMARY | 2025-03-06 10:55 | XMS_ITS | Clinical Summary ---
Author Organization [facility] ity Address [address] [place] [address] Care Team Providers Care Market Research Worker Name Role Phone Unavailable Primary Care Provider [...] Cervical Cancer Screening: P ap Smear 2020 COVID-19 Vaccine ( - 2023-2 5 season) 2024 Influenza Vaccine (Season Ended) [...]
[2025-03-06 13:39] LABS: MANUAL DIFF FLAG NO
[2025-03-06 13:50] LABS: Basophils Absolute Auto 0.1 X10*3/uL (0.0-0.2); Basophils Percent Auto 1.2 % (0-2); Eosinophils Absolute Auto 0.2 X10*3/uL (0.0-0.4); Eosinophils Percent Auto 3.9 % (0-4); Hematocrit 36.2 % (37.0-47.0); Hemoglobin 12.7 g/dl (12.0-16.0); Imm Gran Abs Auto 0.02 X10*3/uL (0.00-0.03); Imm Gran Pct Auto 0.4 % (0.0-0.4); Lymphocytes Absolute Auto 2.2 X10*3/uL (1.2-4.9); Lymphocytes Percent Auto 39.3 % (20-40); Mean Corpuscular HGB Conc 35.1 g/dl (31.0-35.0); Mean Corpuscular Hemoglobin 31.2 pg (27.0-33.0); Mean Corpuscular Volume 88.9 fL (80.0-98.0); Mean Platelet Volume 11.4 fL (9.4-12.3); Monocytes Absolute Auto 0.3 X10*3/uL (0.1-1.2); Monocytes Percent Auto 4.8 % (2-11); Neutrophils Absolute Auto 2.9 x10*3/uL (2.0-8.3); Neutrophils Percent Auto 50.4 % (45-73); Platelet Count 287 X10*3/uL (160-400); Red Blood Count 4.07 X10*6/uL (4.20-5.50); Red Cell Distribution Width 12.1 % (11.0-16.0); White Blood Count 5.7 X10*3/uL (4.8-10.8)
[2025-03-06 14:10] LABS: Alanine Aminotransferase 30 U/L (0-31); Albumin Level 4.4 g/dL (3.5-5.0); Alkaline Phosphatase 49 U/L (39-117); Anion Gap 9 (12-20); Aspartate Amino Transferase 26 U/L (5-31); Bilirubin Total 0.6 mg/dL (0.0-1.0); Blood Urea Nitrogen 14 mg/dL (9-16); Calcium 9.3 mg/dL (8.4-10.2); Carbon Dioxide 26 mmol/L (22-29); Chloride 108 mmol/L (96-108); Estimated Glomerular Filt Rate > 60; Glucose Random 84 mg/dL (60-115); Potassium 4.2 mmol/L (3.3-5.1); Sodium 139 mmol/L (135-145); Total Protein 7.2 g/dL (6.5-8.0)
[2025-03-09 12:34] LABS: TS Negative Control Passed; TS Panel A 0; TS Panel B 0; TS Positive Control Passed; TSpotTB Negative (Negative)
== END 2025-03-06 10:18 | disposition home or self-care (01) ==
LOC: HO.HMGCLDS 10:17
PROVIDERS: PCP Internal Medicine; Visit Provider Internal Medicine
DX: R00.2 Palpitations (principal); Z11.1 Encounter for screening for respiratory tuberculosis; F33.41 Major depressive disorder, recurrent, in partial remission
CPT/HCPCS: 36415; 80053; 85025; 86481

== ENCOUNTER 2025-04-17 11:56 | Outpatient (REF) | payer BC, SELFPAY ==
--- OUTSIDE RECORDS SUMMARY | 2025-04-17 12:20 | XMS_ITS | Clinical Summary ---
Author Organization [facility] Address [address] [place] [address] Care Team Providers Care Football Pad Repairer Name Role Phone Unavailable Primary Care Provider [...] 94 11/14/2021 12:43 AM EST Temperature 37.5 C (99.5 F) 2021 7:28 PM EST Respiratory Rate 18 11/14/2021 12:43 AM EST [...] series) 2018 Pap Smear (Ages 21-65) 2020 COVID-19 Vaccine ( - 2023-2 5 season) 2024 Influenza Vaccine 05/08/2025 Pneumococcal Vaccine: Pediat kb (0-5 Years) and At-Risk Patients (6 to 49 Years) Aged Out No longer eligible b ased on patient's age to complete this topic Insurance [facility] PREFERRED
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
--- OUTSIDE RECORDS SUMMARY | 2025-04-17 12:20 | XMS_ITS | Clinical Summary ---
Author Organization [facility] ity Address [address] [place] [address] Care Team Providers Care Shop Laborer Name Role Phone Unavailable Primary Care Provider [...] - 2023-2 5 season) 2024 Influenza Vaccine (#1) 2025 HIB Vaccines Aged Out No longer [...] 5 Years) and At-Risk Patients (6 to 49 [...]
[2025-04-18 08:36] LABS: HBS Num1 > 1000.00 mIU/mL (0-7.99); ~Hepatitis B Surface Antibody REACTIVE (Nonreactive)
== END 2025-04-17 11:57 | disposition home or self-care (01) ==
LOC: HO.HMGCLDS 11:56
PROVIDERS: PCP Internal Medicine; Visit Provider Internal Medicine
DX: Z78.9 Other specified health status (principal)
CPT/HCPCS: 36415; 86706

== ENCOUNTER 2025-08-14 13:06 | Outpatient (AMB) | payer BC, SELFPAY ==
[2025-08-14 13:08] VITALS: BP 90/60; PULSE 81; RESP 16; TEMP 36.8; O2SAT 100; BMI 25.0
--- NOTE | 2025-08-14 13:08 | AM.OFFWIN_ITS ---
Intake Vital Signs 08/14/25 13:08 Height 5 ft 6 in Weight 155 lb BMI 25.0 BP 90/60 Blood Pressure Location Lt brachial Position Sitting Respiration 16 Pulse 81 Pulse Source Pulse Oximeter Temp 98.3 F Temp Source Oral Pulse Oximetry (%) 100 Oxygen Delivery Method Room Air Intake Visit Reasons: ep lump on right breast painful Intake Note: Pt is here today c/o lump on Rt breast and its painful x2days Patient Tobacco Use Status: Never used Tobacco Volunteer Assistant Required: No Is last menstrual period known: Yes Last menstrual period: 08/08/25 Allergies No Known Allergies Allergy (Verified 08/14/25 13:12) HPI HPI Comments History of Present Illness Details This is a 24-year-old female with no stated past medical history presenting for evaluation of a right breast lump that she noted 2 days ago. Patient's last normal menstrual period started on August 08 and ended on August 13. Patient states that the lesion is uncomfortable and she has never noticed a lesion in either breast previously. Patient denies having any nipple discharge in his on oral contraceptives but this is not a new medication to her. [facility] Medical History Migraine with aura Family History Maternal Grandfather Diabetes Social History Housing: House Alcohol intake: current Alcohol intake frequency: holidays/special occasions only Patient Tobacco Use Status: Never used Tobacco e-Cigarette/Vaping Use: Currently Using service: No Current occupational status: employed Sexual orientation: Straight/Heterosexual Gender identity: Female Cognitive needs: No Hearing needs: No Vision needs: Yes Female Reproductive History Menstrual Age of Menarche: 11 Date of last menstrual period: 08/08/25 Review of Systems Const All systems reviewed & are unremarkable except as noted in HPI and below Denies body aches, Denies chills and Denies fever(s) Eyes Reports no additional complaints ENT Reports no additional complaints Card Reports no additional complaints GI Reports no additional complaints Reports no additional complaints Musc Reports no additional complaints Skin/Breast Denies breast skin changes, Reports breast pain, Reports breast mass and Denies change in breast shape Neuro Reports no additional complaints Endo Reports no additional complaints Physical Exam Vital Signs: Last Vital Signs Temp 98.3 F 08/14/25 13:08 Pulse 81 08/14/25 13:08 Resp 16 08/14/25 13:08 BP 90/60 08/14/25 13:08 Pulse Ox 100 08/14/25 13:08 Oxygen Delivery Method Room Air 08/14/25 13:08 BMI result Body Mass Index 25.0 Const General: cooperative, healthy appearing, comfortable, no acute distress, well developed, alert, awake and Physically active Nutritional Appearance: well nourished Orientation/consciousness: patient oriented x3 Limitations: no limitations Chest Chest palpation & inspection: normal inspection of the chest Breast/axilla palpation: normal palpation of the axillae, no axillary lymphadenopathy, abnormal palpation of the breast (palpable & tender fixed irregular breast tissue medial to the R. nipple ) and other (no erythema of right breast. no nipple discharge) Neuro General: patient oriented x3 Psych Appearance: grossly normal Mental Status: mental status grossly normal Insight: Good insight present (Psych) Judgement: Good judgement present (Psych) Assessment & Plan Assessment & Plan (1) Breast anomaly: Comment: Patient's history, examination and timing of recent menses is most likely consistent with cystic breasts and not a malignancy. Patient is reassured however she will be referred to the [facility] for a more comprehensive evaluation. 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 Coding Level of Care Code Est Pt Level 3 (07646) Diagnoses Breast anomaly Q83.9 Time Spent (min) 15
--- OUTSIDE RECORDS SUMMARY | 2025-08-14 15:15 | XMS_ITS | Clinical Summary ---
Author Organization [facility] Address [address] [place] [address] Care Team Providers Care Debrander Name Role Phone Unavailable Primary Care Provider [...] Pap Smear (Ages 21-65) 2020 Influenza Vaccine 05/08/2025 COVID-19 Vaccine ( - 2023-2 5 season) 2025 Pneumococcal Vaccine: Pediat kb (0-5 Years) and At-Risk Patients (6 to 49 Years) Aged Out No longer eligible b ased on patient's age to complete this topic Insurance [facility] PREFERRED
== END 2025-08-14 14:10 | disposition home or self-care (01) ==
PROVIDERS: PCP Internal Medicine; Visit Provider Physician Assistant
DX: Q83.9 Congenital malformation of breast, unspecified (principal)

== ENCOUNTER 2025-08-28 10:53 | Outpatient (AMB) | payer BC, SELFPAY ==
[2025-08-28 10:57] VITALS: BP 100/60; PULSE 66; O2SAT 98
--- NOTE | 2025-08-28 10:57 | MHC.PC.OV ---
Vital Signs 08/28/25 10:57 Height 5 ft 6 in Weight 15 lb BMI 2.4 BP 100/60 Blood Pressure Location Rt brachial Position Sitting Pulse 66 Pulse Source Pulse Oximeter Pulse Oximetry (%) 98 Oxygen Delivery Method Room Air Intake Visit Reasons: lump in right breast Allergies No Known Allergies Allergy (Verified 08/28/25 10:57) Medication List - Last Reconciled 08/28/25 by Fabiano Bustamante MD norethindrone (contraceptive) (Eliane) 0.35 mg PO DAILY 90 days Tobacco use date assessed: 11/07/24 Dental Screening Dental Screen Date: 11/07/24 HPI HPI Comments History of Present Illness Details History of Present Illness The patient is a 24 year old individual presenting with a painful right breast lump. Bilateral Breast Lumps: - The patient noticed a lump in the right breast which is painful upon pressure. - The patient first observed this around the start of the patient's menstrual period and noted that while it is still present, it is not as large as it was initially. - The patient denies any nipple discharge. - There is no family history of breast issues. 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 Family History: - Denies any family history of breast issues. [facility] Medical History Migraine with aura Family History Maternal Grandfather Diabetes Social History Housing: House Alcohol intake: current Alcohol intake frequency: holidays/special occasions only Patient Tobacco Use Status: Never used Tobacco e-Cigarette/Vaping Use: Currently Using service: No Current occupational status: employed Sexual orientation: Straight/Heterosexual Gender identity: Female Cognitive needs: No Hearing needs: No Vision needs: Yes Female Reproductive History Menstrual Age of Menarche: 11 Questionnaire Thrive Questionnaire Date Thrive assessed: 11/07/24 I am a: Patient What is your living situation today?: I have a steady place to live Within the past 12 months, did the food you bought not last and you didn't have the money to get more?: I choose not to answer this question Within the past 12 months, did you worry whether your food would run out before you got money to buy more?: I choose not to answer this question Do you have trouble paying for medicines?: I choose not to answer this question Do you have trouble getting transportation to medical appointments?: I choose not to answer this question Do you have trouble paying your heating and electricity bill?: I choose not to answer this question Do you have trouble taking care of your child, family member or friend?: I choose not to answer this question Do you have trouble with day-to-day activities such as bathing, preparing meals, shopping, managing finances, etc.?: I choose not to answer this question Are you currently unemployed and looking for a job?: I choose not to answer this question Are you interested in more education?: I choose not to answer this question Please select the resources that you would like help with: None Currently or been in a relationship where the following occur: No concerns reported THRIVE Score: 0 RAMESH-7 AMB Questionnaire RAMESH-7 Date RAMESH - 7 assessed: 11/07/24 Source: Developed by Drs. Donald De Leon, Elena Longoria, Rod Lamar and colleagues, with an educational danny from [employer]. Review of Systems Narrative Review of Systems - Breast: Reports a painful lump in the right breast. - Breast: Denies any nipple discharge. - General: No fever no chills - Neurological: No headaches no dizziness - Ear nose throat: No sore throat no hearing difficulty no ear pain - Cardiovascular: No syncope, no chest pain, no palpitations Physical exam (Primary Care) Vital Signs: Last Vital Signs Pulse 66 08/28/25 10:57 BP 100/60 08/28/25 10:57 Pulse Ox 98 08/28/25 10:57 Oxygen Delivery Method Room Air 08/28/25 10:57 BMI result Body Mass Index 2.4 Tobacco/Smoking Status: Tobacco use Status Tobacco use date assessed 11/07/24 08/28/25 11:02 Patient Tobacco Use Status Never used Tobacco 08/28/25 11:02 e-Cigarette/Vaping Use Currently Using 08/28/25 11:02 Thrive Assessment: Date of Thrive Assessment Date Thrive assessed 11/07/24 08/28/25 11:02 Currently or been in a relationship where the following occur: No concerns reported Narrative Physical Exam General: No acute distress HEENT: No acute findings Neck: Supple Respiratory system: Able to talk in full sentences, no audible wheeze Breast exam : both side of breasts lumpy , right side with soreness on exam , no nipple discharge Gastrointestinal: No pain WELFARE ANALYST: Alert awake oriented x3 motor intact Skin: Normal turgor Coding Level of Care Code Est Pt Level 3 (65351) Diagnoses Segmental fibroadenosis of breast, 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 - The patient was reassured that the condition is most likely benign, given the presence of lumps on both sides. - It was recommended that the patient take Advil to help manage pain. - The patient was offered a flu vaccine but reported having already received it. Orders: Orders US breast LT complete Today N60.29 - Fibroadenosis of unspecified breast, N64.4 - Mastodynia US breast RT complete Today N60.29 - Fibroadenosis of unspecified breast, N64.4 - Mastodynia
--- OUTSIDE RECORDS SUMMARY | 2025-08-28 11:46 | XMS_ITS | Clinical Summary ---
Author Organization [facility] Address [address] [place] [address] Care Team Providers Care Chief Engineer Production Name Role Phone Unavailable Primary Care Provider [...] patient's age to complete this topic Insurance [facility] PREFERRED
--- OUTSIDE RECORDS SUMMARY | 2025-08-28 11:46 | XMS_ITS | Clinical Summary ---
Author Organization [facility] it Address [address] [place] [address] Care Team Providers Care Detasseling Crew Supervisor Name Role Phone Unavailable Primary Care Provider [...] Screening: P ap Smear 2020 Depression Screening 10/08/2024 COVID-19 Vaccine (1 - 2024-2 6 season) 2025 Influenza Vaccine (#1) 2025 RSV Immunization Adult Patie nts (1 - 1-dose 75+ series) 2074 HIB Vaccines Aged Out No longer eligi [...]
== END 2025-08-28 11:26 | disposition home or self-care (01) ==
LOC: HO.HMCC 10:54
PROVIDERS: PCP Internal Medicine; Visit Provider Internal Medicine
DX: N60.29 Fibroadenosis of unspecified breast (principal); N64.4 Mastodynia